=== PATIENT | female | born 1965 | race Caucasian/White ===

== ENCOUNTER 2016-11-01 14:09 | Emergency (ER) | payer OTHER ==
[~2016-11-01] VITALS: Ht 167.6 cm; Wt 72.0 kg
[2016-11-01 14:13] VITALS: Ht 167.6 cm; Wt 72.0 kg
[2016-11-01] MEDS ORDERED: FAMOTIDINE 20 MG INJ IV STA (15:51)
[2016-11-01] MEDS ORDERED: ONDANSETRON 4 MG INJ IV STA (15:51)
[2016-11-01] MEDS ORDERED: SOD CHLORIDE 0.9% 1,000 ML IV STA (15:51)
[2016-11-01 15:59] LABS: BASOPHILS % 0.5 % (0.0-2.0); EOSINOPHILS % 0.3 % (0.0-7.0); HEMATOCRIT 36.4 % (37.0-47.0); HEMOGLOBIN 13.3 g/dl (12.0-16.0); LYMPHOCYTES # 1.3 10^3/ul (0.8-2.9); LYMPHOCYTES % 17.6 % (15.0-51.0); MEAN CORPUSCULAR HEMOGLOBIN 37.4 pg (29.0-33.0); MEAN CORPUSCULAR HGB CONC 36.5 g/dl (32.0-37.0); MEAN CORPUSCULAR VOLUME 102.2 fl (82.0-101.0); MEAN PLATELET VOLUME 9.8 fl (7.4-10.4); MONOCYTE # 0.6 10^3/ul (0.3-0.9); MONOCYTES % 7.7 % (0.0-11.0); NEUTROPHILS % 73.6 % (39.0-77.0); PLATELET COUNT 197 10^3/UL (140-415); RED BLOOD COUNT 3.56 10^6/ul (4.20-5.40); RED CELL DISTRIBUTION WIDTH 13.1 % (11.5-14.5); WHITE BLOOD COUNT 7.4 10^3/ul (4.8-10.8)
[2016-11-01] MEDS ORDERED: LORAZEPAM 2 MG INJ IV ONE (16:00)
[2016-11-01] MEDS ORDERED: METO-429 PO (16:07)
[2016-11-01] MEDS ORDERED: LISI40TA9 PO (16:08)
[2016-11-01 16:18] LABS: ALANINE AMINOTRANSFERASE 38 IU/L (13-69); ALBUMIN 4.7 g/dl (3.3-4.9); ALBUMIN/GLOBULIN RATIO 1.11; ALKALINE PHOSPHATASE 72 IU/L (42-121); ANION GAP 25 (8-16); ASPARTATE AMINO TRANSFERASE 36 IU/L (15-46); BILIRUBIN,INDIRECT 0.2 mg/dl (0-1.1); BILIRUBIN,TOTAL 0.2 mg/dl (0.2-1.3); BLOOD UREA NITROGEN 33 mg/dl (7-20); CALCIUM 9.3 mg/dl (8.4-10.2); CARBON DIOXIDE 25 mmol/L (21-31); CHLORIDE 92 mmol/L (97-110); CREATININE 1.91 mg/dl (0.44-1.00); GLUCOSE 122 mg/dl (70-220); POTASSIUM 4.7 mmol/L (3.5-5.1); SODIUM 137 mmol/L (135-144); TOTAL PROTEIN 8.9 g/dl (6.1-8.1)
[2016-11-01 16:19] LABS: ETHANOL < 10.0 mg/dl
[2016-11-01 17:00] LABS: ADD UMIC YES; UR ASCORBIC ACID NEGATIVE (NEGATIVE); UR BACTERIA FEW /HPF (NONE SEEN); UR BILIRUBIN (Dip) NEGATIVE (NEGATIVE); UR BLOOD (Dip) 1+ mg/dL (NEGATIVE); UR CLARITY SLIGHTLY CLOUDY (CLEAR); UR COLOR YELLOW (YELLOW); UR GLUCOSE (Dip) 1+ mg/dL (NEGATIVE); UR KETONES (Dip) TRACE mg/dL (NEGATIVE); UR LEUKOCYTE ESTERASE (Dip) NEGATIVE Leu/ul (NEGATIVE); UR NITRITE (Dip) NEGATIVE (NEGATIVE); UR RBC 1 /HPF (0-5); UR SPECIFIC GRAVITY (Dip) 1.018 (1.003-1.030); UR TOTAL PROTEIN (Dip) NEGATIVE (NEGATIVE); UR UROBILINOGEN (Dip) NEGATIVE (NEGATIVE)
--- NOTE | 2016-11-01 18:08 | ERD ---
ER Documentation Chief Complaint Date/Time DATE: 11/01/16 TIME: 18:06 Chief Complaint pt bib family with c/o vomiting 'blood looking stuff" fell on Monday +KO HPI This is a 50-year-old female with a history of alcohol abuse presents to the emergency room for evaluation of nausea, vomiting with blood-tinged vomit. The patient did have a fall on Monday and did sustain joselito to the back of her head. She has had no recent falls after that and denies any homicidal suicidal ideation. ROS All systems reviewed and are negative except as per history of present illness. Medications Home Meds Reported Medications Lisinopril* (Lisinopril*) 40 Mg Tablet, 40 MG PO DAILY, #30 TAB 11/01/16 Metoprolol Tartrate* (Lopressor*) 50 Mg Tab, 50 MG PO BID, #60 TAB 11/01/16 Allergies Allergies: Coded Allergies: Penicillins (Verified Allergy, Mild, 11/01/16) Sulfa (Sulfonamide Antibiotics) (Verified Allergy, Mild, 11/01/16) azithromycin (Verified Allergy, Mild, 11/01/16) PMhx/Soc History of Surgery: No Anesthesia Reaction: No Hx Neurological Disorder: No Hx Respiratory Disorders: No Hx Cardiac Disorders: Yes (HTN) Hx Psychiatric Problems: Yes (ETOH ABUSE) Hx Alcohol Use: Yes (4-5 [place] DAILY) Hx Substance Use: Yes (MARIJUANA) Hx Tobacco Use: Yes Smoking Status: Current every day smoker Physical Exam Vitals Vital Signs Date Time Temp Pulse Resp B/P Pulse Ox O2 Delivery O2 Flow Rate FiO2 11/01/16 16:53 85 17 123/75 98 Room Air 11/01/16 14:13 98.3 98 18 134/74 98 Physical Exam INITIAL VITAL SIGNS: Reviewed by me GENERAL: The patient is well developed and appropriate for usual state of health in no apparent distress HEENT: Dry mucous membranes, pupils equal, round, and reactive to light. EOMI. There is no scleral icterus. NECK: C-spine is soft and supple, there is no meningismus. There is no cervical lymphadenopathy. LUNGS: Clear to auscultation bilaterally. There are no rales, wheezes or rhonchi. HEART: Regular rate and rhythm, no murmurs, clicks, rubs or gallops. ABDOMEN: Soft, non-tender, non-distended. There are bowel sounds in all four quadrants. No rebound or guarding. EXTREMITIES: There is no peripheral cyanosis or edema. No focal swelling or erythema. NEUROLOGICAL: The patient moves all four extremities with 5/5 strength. Cranial nerves II - XII are intact. Normal gait. Alert and oriented SKIN: There is no apparent rash or petechiae. HEME/LYMPHATIC: There is no evidence of excessive bruising or lymphedema. PSYCHIATRIC: The patient does not appear anxious or depressed. Result Diagram: 11/01/16 1547 11/01/16 1547 Results 24 hrs Laboratory Tests Test 11/01/16 14:11 11/01/16 15:47 Urine Color YELLOW Urine Clarity SLIGHTLY CLOUDY Urine pH 5.0 Urine Specific [place] 1.018 Urine Ketones TRACEmg/dL Urine Nitrite NEGATIVEmg/dL Urine Bilirubin NEGATIVEmg/dL Urine Urobilinogen NEGATIVEmg/dL Urine Leukocyte Esterase NEGATIVELeu/ul Urine Microscopic RBC 1/HPF Urine Microscopic WBC 1/HPF Urine Bacteria FEW/HPF Urine Hemoglobin 1+mg/dL Urine Glucose 1+mg/dL Urine Total Protein NEGATIVEmg/dl White Blood Count 7.410^3/ul Red Blood Count 3.5610^6/ul Hemoglobin 13.3g/dl Hematocrit 36.4% Mean Corpuscular Volume 102.2fl Mean Corpuscular Hemoglobin 37.4pg Mean Corpuscular Hemoglobin Concent 36.5g/dl Red Cell Distribution Width 13.1% Platelet Count 53585^3/UL Mean Platelet Volume 9.8fl Neutrophils % 73.6% Lymphocytes % 17.6% Monocytes % 7.7% Eosinophils % 0.3% Basophils % 0.5% Nucleated Red Blood Cells % 0.0/100WBC Neutrophils # (Manual) 5.410^3/ul Lymphocytes # 1.310^3/ul Monocytes # 0.610^3/ul Eosinophils # 0.010^3/ul Basophils # 0.010^3/ul Nucleated Red Blood Cells # 0.010^3/ul Sodium Level 137mmol/L Potassium Level 4.7mmol/L Chloride Level 92mmol/L Carbon Dioxide Level 25mmol/L Anion Gap 25 Blood Urea Nitrogen 33mg/dl Creatinine 1.91mg/dl Glucose Level 122mg/dl Calcium Level 9.3mg/dl Total Bilirubin 0.2mg/dl Direct Bilirubin 0.00mg/dl Indirect Bilirubin 0.2mg/dl Aspartate Amino Transf (AST/SGOT) 36IU/L Alanine Aminotransferase (ALT/SGPT) 38IU/L Alkaline Phosphatase 72IU/L Total Protein 8.9g/dl Albumin 4.7g/dl Globulin 4.20g/dl Albumin/Globulin Ratio 1.11 Lipase 118U/L Ethyl Alcohol Level < 10.0mg/dl Current Medications Medications (Trade) Dose Ordered Sig/Maddi Route PRN Reason Start Time Stop Time Status Last Admin Dose Admin Sodium Chloride (NS) 1,000 ml @ 1,000 mls/hr Q1H STAT IV 11/01/16 15:51 11/01/16 16:50 DC 11/01/16 16:14 Ondansetron HCl (Zofran Inj) 4 mg ONCE STAT IV 11/01/16 15:51 11/01/16 15:53 DC 11/01/16 16:13 Famotidine (Pepcid Iv) 20 mg ONCE STAT IV 11/01/16 15:51 11/01/16 15:53 DC 11/01/16 16:13 Lorazepam (Ativan) 2 mg ONCE ONCE IV 11/01/16 16:00 11/01/16 16:01 DC 11/01/16 16:13 Procedures/MDM This 50-year-old female presents to the ER for evaluation of nausea and vomiting with some mild blood tinged vomit. When I evaluated this patient she had dry mucous membranes. The patient did have blood work obtained, she was given 1 L fluids, 1 mg of Ativan, and Zofran and Pepcid. Upon my reevaluation the patient states she is feeling much better at this time. Her lab work does not reveal any signs of anemia or pancreatitis. The patient will be discharged at this time with a prescription for Librium, Zofran, Pepcid and referral for outpatient detox centers. Smoking Cessation Therapy: Pt. was lectured for greater than 3 minutes on the health risks of continued smoking and the benefits of cessation. Departure Diagnosis: Primary Impression: Alcoholic gastritis Additional Impression: Nausea & vomiting Condition: Stable MIYA VIGIL DO Nov 01, 2016 18:08
[2016-11-01] MEDS ORDERED: CHLO25CA9 PO (18:09)
[2016-11-01] MEDS ORDERED: FAMO20TA18 PO (18:09)
[2016-11-01] MEDS ORDERED: ONDA4TAB8 PO (18:09)
[2016-11-01 18:35] VITALS: BP 140/61; PULSE 89; RESP 17; TEMP 98.2
== END 2016-11-01 18:37 | disposition home or self-care (01) ==
LOC: E/R 14:09
DX: K29.20 Alcoholic gastritis without bleeding (principal); R11.2 Nausea with vomiting, unspecified; F17.210 Nicotine dependence, cigarettes, uncomplicated; I10 Essential (primary) hypertension
CPT/HCPCS: 36415; 80053; 80306; 81001; 83690; 85025; 96374; 96375; 99284; J2060; J2405; J7030